=== PATIENT | female | born 1990 | race Caucasian/White ===

== ENCOUNTER 2019-09-29 16:34 | Emergency (ER) | payer SELFPAY ==
[~2019-09-29] VITALS: Ht 149.9 cm; Wt 78.0 kg
[2019-09-29 17:00] VITALS: Ht 149.9 cm; Wt 78.0 kg
[2019-09-29 18:06] LABS: BASOPHIL % 0.3 % (0-2); PLATELET COUNT 240 x10^3mcL (130-400)
[2019-09-29 18:24] LABS: microscopic required? NO
[2019-09-29 18:36] LABS: UA SPECIFIC GRAVITY >=1.030 (1.005-1.035); urine erythrocyte NEGATIVE (NEGATIVE)
[2019-09-29 19:40] VITALS: BP 111/70
== END 2019-09-29 20:31 | disposition home or self-care (01) ==
LOC: ED 16:34
PROVIDERS: Emergency Medicine
DX: O26.891 Other specified pregnancy related conditions, first trimester (principal); R10.31 Right lower quadrant pain; J45.909 Unspecified asthma, uncomplicated; E66.9 Obesity, unspecified; Z68.34 Body mass index [BMI] 34.0-34.9, adult; Z3A.01 Less than 8 weeks gestation of pregnancy
CPT/HCPCS: 36415

== ENCOUNTER 2020-02-04 17:29 | Emergency (ER) | payer SELFPAY ==
[~2020-02-04] VITALS: Ht 149.9 cm; Wt 73.0 kg
[2020-02-04 17:30] VITALS: Ht 149.9 cm; Wt 73.0 kg
[2020-02-04 19:43] LABS: BASOPHIL % 0.5 % (0-2); PLATELET COUNT 229 x10^3mcL (130-400); RED CELL DISTRIBUTION WIDTH 13.4 % (11.5-14.5)
[2020-02-04 19:50] LABS: CARBON DIOXIDE 27.7 mmol/L (21-32); CHLORIDE SERUM 105 mmol/L (98-107); CREATININE SERUM 0.6 mg/dL (0.6-1.0); GFR1 > 60 mL/min; GLUCOSE SERUM 76 mg/dL (74-106); POTASSIUM SERUM 3.3 mmol/L (3.5-5.1); SODIUM SERUM 139 mmol/L (136-145)
[2020-02-04 19:53] LABS: UA SPECIFIC GRAVITY 1.025 (1.005-1.035); microscopic required? YES; urine erythrocyte NEGATIVE (NEGATIVE)
[2020-02-04 19:54] LABS: ALKALINE PHOSPHATASE 71 U/L (46-116); ALT/SGPT 21 U/L (14-59); AST/SGOT 32 U/L (15-37); BILIRUBIN TOTAL 0.35 mg/dL (0.20-1.00); LIPASE 82 IU/L (73-393); TOTAL PROTEIN, SERUM 6.4 g/dL (6.4-8.2)
[2020-02-04 19:55] LABS: ALBUMIN 2.6 g/dL (3.4-5.0)
[2020-02-04 20:44] VITALS: BP 138/69
== END 2020-02-04 20:44 | disposition home or self-care (01) ==
LOC: ED 17:29
PROVIDERS: Emergency Medicine
DX: U07.1 COVID-19 (principal); O21.0 Mild hyperemesis gravidarum; Z3A.01 Less than 8 weeks gestation of pregnancy; J45.909 Unspecified asthma, uncomplicated
CPT/HCPCS: J2405; Q0092

== ENCOUNTER 2020-03-06 15:22 | Emergency (ER) | payer OTHER, MEDICAID, SELFPAY ==
[~2020-03-06] VITALS: Ht 149.9 cm; Wt 78.0 kg
[2020-03-06 15:23] VITALS: Ht 149.9 cm; Wt 78.0 kg
[2020-03-06 17:47] VITALS: BP 112/60
== END 2020-03-06 17:47 | disposition home or self-care (01) ==
LOC: ED 15:22
DX: O99.512 Diseases of the respiratory system complicating pregnancy, second trimester (principal); H92.02 Otalgia, left ear; R35.0 Frequency of micturition; Z3A.28 28 weeks gestation of pregnancy

== ENCOUNTER 2020-03-07 20:02 | Emergency (ER) | payer OTHER, MEDICAID ==
[~2020-03-07] VITALS: Ht 149.9 cm; Wt 77.1 kg
[2020-03-07 20:26] VITALS: Ht 149.9 cm; Wt 77.1 kg
[2020-03-08 00:16] LABS: CALCIUM 8.5 mg/dL (8.5-10.1); CARBON DIOXIDE 26.6 mmol/L (21-32); CHLORIDE SERUM 103 mmol/L (98-107); CREATININE SERUM 0.5 mg/dL (0.6-1.0); GFR1 > 60 mL/min; GLUCOSE SERUM 77 mg/dL (74-106); POTASSIUM SERUM 3.6 mmol/L (3.5-5.1); SODIUM SERUM 136 mmol/L (136-145)
[2020-03-08 00:17] LABS: BASOPHIL % 0.1 % (0-2); PLATELET COUNT 204 x10^3mcL (130-400); RED CELL DISTRIBUTION WIDTH 13.9 % (11.5-14.5)
[2020-03-08 00:21] LABS: ALKALINE PHOSPHATASE 50 U/L (46-116); ALT/SGPT 13 U/L (14-59); AST/SGOT 16 U/L (15-37); BILIRUBIN TOTAL 0.2 mg/dL (0.20-1.00); LIPASE 96 IU/L (73-393); TOTAL PROTEIN, SERUM 6.3 g/dL (6.4-8.2); TRIGLYCERIDES 130 mg/dL (<150)
[2020-03-08 00:23] LABS: ALBUMIN 2.7 g/dL (3.4-5.0); CHOLESTEROL 229 mg/dL (<200); CHOLESTEROL/HDL RATIO 2.8; HDL CHOLESTEROL 81 mg/dL (40-60)
[2020-03-08 00:57] LABS: FREE T4 1.01 ng/dL (0.76-1.46); FREE THYROXINE INDEX 2.8 ug/dL (1.4-4.5); T4(THYROXINE) 12.1 ug/dL (4.7-13.3)
[2020-03-08 01:50] VITALS: BP 106/76
[2020-03-08 14:35] LABS: T3 TOTAL 1.79 ng/mL
== END 2020-03-08 01:45 | disposition home or self-care (01) ==
LOC: ED 20:02
PROVIDERS: Specialist
DX: O99.343 Other mental disorders complicating pregnancy, third trimester (principal); J45.909 Unspecified asthma, uncomplicated; Z3A.28 28 weeks gestation of pregnancy
CPT/HCPCS: 83880; 84439

== ENCOUNTER 2020-03-21 15:23 | Emergency (ER) | payer OTHER, MEDICAID | END 2020-03-21 15:35 | disposition left against medical advice (07) | LOC: ED 15:23 | DX: Z53.21 Procedure and treatment not carried out due to patient leaving prior to being seen by health care provider (principal) ==

== ENCOUNTER 2020-03-29 19:52 | Emergency (ER) | payer OTHER, MEDICAID ==
[~2020-03-29] VITALS: Ht 147.3 cm; Wt 79.4 kg
[2020-03-29 19:55] VITALS: Ht 147.3 cm; Wt 79.4 kg
[2020-03-29 21:12] VITALS: BP 116/58
== END 2020-03-29 21:12 | disposition home or self-care (01) ==
LOC: ED 19:52
DX: O21.8 Other vomiting complicating pregnancy (principal); O99.513 Diseases of the respiratory system complicating pregnancy, third trimester; R51 Headache; Z3A.31 31 weeks gestation of pregnancy

== ENCOUNTER 2020-04-06 20:30 | Emergency (ER) | payer OTHER, MEDICAID ==
[~2020-04-06] VITALS: Ht 149.9 cm; Wt 79.8 kg
[2020-04-06 20:41] VITALS: Ht 149.9 cm; Wt 79.8 kg
[2020-04-06 23:01] VITALS: BP 106/78
== END 2020-04-06 23:01 | disposition home or self-care (01) ==
LOC: ED 20:30
DX: O99.513 Diseases of the respiratory system complicating pregnancy, third trimester (principal); J31.0 Chronic rhinitis; J45.909 Unspecified asthma, uncomplicated; Z3A.32 32 weeks gestation of pregnancy